=== PATIENT | female | born 1950 | race Caucasian/White ===

== ENCOUNTER → 2019-05-14 | Outpatient (CLI) | payer OTHER ==
[~2019-05-14] VITALS: Ht 162.6 cm; Wt 65.8 kg
[~2019-05-14] MED LIST: CHILDREN'S ASPI81 M1 PO; CRESTOR5 MG PO; ESCITALOPRA5 MG/5 ML PO; INTERMEZZO3.5 MG PO; PRESERVISION A1 EACH PO; PROPRANOLOL 4040 M1 PO
[2019-05-14 09:19] VITALS: BP 138/86
--- NOTE | 2019-05-14 09:40 | NUR ---
Pain Clinic Assessment: 1. History of Osteoarthritis: History of Rheumatoid Arthritis: 2. Height: 5 ft. 4 in. 162.6 cm. Weight: 145.0 lb. oz. 65.772 kg. Patient's BMI: 24.9 3. Vital Signs: BP: 138/86 Pulse: 73 Resp: 16 Temp: 02 Sat: 100 ECG Mon: 4. Pain Intensity: 9 5. Fall Risk: Dizziness: Y Needs help standing or walking: Y Fallen in the last 3 months: N Fall risk comments: 6. Patient on Blood Thinner: None 7. History of Hypertension: N 8. Opioid Therapy greater than 6 weeks: N Opiate Contract Signed: 9. Risk Assessment Tool Provided: 4-MODERATE RISKS 10. Functional Assessment Tool: 45/ 11. Recreational Drug Use: Never Drug Type: Tobacco Use: Never Smoker Tobacco Type: Amount or Packs/day: How Many Years: Alcohol Use: Yes Frequency: Special Occasions Quant: VARIES
--- NOTE | 2019-06-03 13:51 | HPC ---
[facility] [address] [address] PAIN MANAGEMENT CONSULTATION Name: AMANDA SOMERS Room #: REG [facility].#: [id number] Admission: 05/14/19 Attend Phys: Ajay Conway MD Discharge: Date of : 50 Report #: [id number] THIS REPORT FOR: cc: Yue Ng MD,Yue Conway,Ajay Richard MD ~ CC: Yue Conway DATE OF SERVICE: 05/14/2019 CHIEF COMPLAINT: Low back pain, which has gotten worse over the last 2 years. HISTORY: The patient is a 69-year-old female who has been referred to the pain clinic for evaluation of pain in the low back area. States that her pain has been problematic since 2018. She described as constant. It prevents her from engaging in activities of daily living. She notes that heat can sometimes be helpful. It impacts her ability to bend, getting in and out of the car, shop as well as impedes cleaning activities. She feels somewhat debilitated because of the pain. She has not had back surgery. She describes it as continuous, steady, constant, burning and aching. She rates it as a 9/10. She denies any new bowel or bladder dysfunction. She denies trauma to her back. She has tried muscle relaxants. She has tried oral steroids. Has had physical therapy. This helped her neck, but still has lower back pain and discomfort. ALLERGIES: SENSITIVITY TO OPIOID ANALGESICS. CURRENT MEDICATIONS: Zolpidem 3.5 mg, escitalopram 10 mg daily, multivitamins, calcium, Crestor 5 mg, aspirin 81 mg, propranolol 40 mg b.i.d. PAST MEDICAL HISTORY: Acid reflux, hyperlipidemia, eye exam in 2012, TIA with resolution about 7 years ago. PAST SURGICAL HISTORY: 1. Laparoscopic sigmoid resection ? diverticulitis, 2012. 2. Cholecystectomy, 10/2012. 3. Scope of vocal cords, 12/2012. 4. Esophagogram, 12/2012. 5. Right knee scope, 2007. 6. Right knee replacement, 2016. 7. Colonoscopy. 8. Tubular adenoma, 06/09/2017. SOCIAL HISTORY: She is a learning disabled teacher, retired, [place] [address] PAIN MANAGEMENT CONSULTATION Name: AMANDA SOMERS Room #: REG [facility]#: [id number] Admission: 05/14/19 Attend Phys: Ajay Conway MD Discharge: Date of : 50 Report #: [id number] REVIEW OF SYSTEMS: Fatigue, weakness. LABORATORY DATA: No new laboratory values are available at the time of our interview. PAIN CLINIC ASSESSMENT AND PQRS: 1. The patient is not being treated for osteoarthritis or rheumatoid arthritis. 2. Height 5 feet 4 inches, weight 145 pounds, BMI is 24.9. 3. Vital signs: Blood pressure 138/86, pulse 73, respiratory rate 16, room air saturation is 100%. 4. Pain intensity, 9/10. 5. Fall history. The patient has not fallen in the last 3 months. 6. Blood thinner. The patient is not on a blood thinning medication. 7. Hypertension. The patient is not being treated for hypertension. 8. Opioids greater than 6 weeks. The patient is not on an opioid regimen. 9. Risk assessment tool, low for opioid use. 10. Functional assessment tool, 45/70. 11. Recreational drug use. The patient denies use of recreational drugs. 12. Tobacco. The patient denies use of tobacco. 13. Alcohol. The patient drinks on special occasions. PHYSICAL EXAMINATION: GENERAL: The patient is a well-developed, well-nourished, white female. Appears her stated age. She is alert and oriented x 3. Her affect is appropriate. Speech is fluent. HEENT: Normocephalic, atraumatic. Extraocular eye muscles intact. Sclerae nonicteric. Mucous membranes are moist. NECK: Without adenopathy or JVD. HEART: Regular rate. LUNGS: Clear. ABDOMEN: Nontender. MUSCULOSKELETAL: The patient has some pain and discomfort in the lower portion of her back with pain that is radiating down into the L5-S1 dermatomal distribution with bilateral L4-L5 involvement. The patient has some pain across the lower portion of her back in the left and right paraspinous areas. IMPRESSION: 1. Lumbar radiculopathy, L4-L5 area with positive straight leg raise. 2. Acid reflux. 3. Hyperlipidemia. 4. Eye exam in 2012. 5. Transient ischemic attack with resolution about 7 years ago. RECOMMENDATIONS: We discussed treatment options with the patient. At this juncture, we will consider an epidural steroid injection. A model was used to indicate the area of probable pathology. We reviewed the reason for lumbar [facility] [address] [place] [address] PAIN MANAGEMENT CONSULTATION Name: AMANDA SOMERS Room #: [facility] Nelson#: [id number] Admission: 05/14/19 Attend Phys: Ajay Conway MD Discharge: Date of : 50 Report #: [id number] radicular pain and the possible etiologies. The patient will elect to return in the near future. She is unable to undergo an injection today because of previous appointments. She will return to the pain clinic, at which time she will then undergo an epidural steroid injection. Questions were sought and answered with her. She is accompanied by her significant other. We would like to thank you for letting us participate in her care. We hope she continues to improve. <ELECTRONICALLY SIGNED> By: Ajay Conway MD 06/03/19 [id number] [id number] Ajay Conway MD /[facility]
== END ==
LOC: PAIN 06:41
DX: M54.16 Radiculopathy, lumbar region (principal); K21.9 Gastro-esophageal reflux disease without esophagitis; E78.5 Hyperlipidemia, unspecified; Z86.73 Personal history of transient ischemic attack (TIA), and cerebral infarction without residual deficits; Z79.899 Other long term (current) drug therapy; Z79.82 Long term (current) use of aspirin; Z88.8 Allergy status to other drugs, medicaments and biological substances

== ENCOUNTER → 2019-05-19 | Outpatient (CLI) | payer OTHER ==
[~2019-05-19] VITALS: Ht 162.6 cm; Wt 68.1 kg
[2019-05-19 10:08] VITALS: BP 129/70
--- NOTE | 2019-05-19 10:20 | NUR ---
Pain Clinic Assessment: 1. History of Osteoarthritis: DENIES History of Rheumatoid Arthritis: DENIES 2. Height: 5 ft. 4 in. 162.6 cm. Weight: 150.2 lb. oz. 68.130 kg. Patient's BMI: 25.8 3. Vital Signs: BP: 129/70 Pulse: 64 Resp: 16 Temp: 02 Sat: 99 ECG Mon: 4. Pain Intensity: 5 5. Fall Risk: Dizziness: Y Needs help standing or walking: N Fallen in the last 3 months: N Fall risk comments: 6. Patient on Blood Thinner: None 7. History of Hypertension: N 8. Opioid Therapy greater than 6 weeks: N Opiate Contract Signed: 9. Risk Assessment Tool Provided: 4-MODERATE RISKS 10. Functional Assessment Tool: 11. Recreational Drug Use: Never Drug Type: Tobacco Use: Former Smoker Tobacco Type: Amount or Packs/day: How Many Years: Alcohol Use: Yes Frequency: Weekly Quant:
== END | disposition home or self-care (01) ==
LOC: PAIN 06:43
DX: M54.16 Radiculopathy, lumbar region (principal); G89.29 Other chronic pain; Z98.890 Other specified postprocedural states; Z79.899 Other long term (current) drug therapy; Z87.891 Personal history of nicotine dependence; Z88.8 Allergy status to other drugs, medicaments and biological substances

== ENCOUNTER → 2019-11-10 | Outpatient (CLI) | payer OTHER ==
[~2019-11-10] VITALS: Ht 162.6 cm; Wt 66.8 kg
[~2019-11-10] MED LIST changes: +OMEPRAZOLE 20 M20 M1 PO
[2019-11-10 08:32] VITALS: BP 125/78
--- NOTE | 2019-11-10 08:41 | NUR ---
Pain Clinic Assessment: 1. History of Osteoarthritis: DENIES History of Rheumatoid Arthritis: DENIES 2. Height: 5 ft. 4 in. 162.6 cm. Weight: 147.2 lb. oz. 66.769 kg. Patient's BMI: 25.3 3. Vital Signs: BP: 125/78 Pulse: 71 Resp: 18 Temp: 02 Sat: 98 ECG Mon: 4. Pain Intensity: 6 5. Fall Risk: Dizziness: N Needs help standing or walking: N Fallen in the last 3 months: N Fall risk comments: 6. Patient on Blood Thinner: None 7. History of Hypertension: N 8. Opioid Therapy greater than 6 weeks: N Opiate Contract Signed: 9. Risk Assessment Tool Provided: 4-MODERATE RISKS 10. Functional Assessment Tool: 45 11. Recreational Drug Use: Never Drug Type: Tobacco Use: Former Smoker Tobacco Type: Amount or Packs/day: How Many Years: Alcohol Use: Yes Frequency: Quant:
--- NOTE | 2019-11-25 01:07 | HPC ---
[facility] [place] [address] PAIN MANAGEMENT CONSULTATION Name: AMANDA SOMERS Room #: REG [facility]#: [id number] Admission: 11/10/19 Attend Phys: Ajay Conway MD Discharge: Date of : 50 Report #: [id number] THIS REPORT FOR: cc: Blake Bro MD, John R. MD Brown,Ajay Richard MD ~ CC: Blake Conway DATE OF SERVICE: 11/10/2019 CHIEF COMPLAINT: Low back pain has returned. HISTORY: The patient is a 69-year-old female who has been seen in the pain clinic because of lumbar radicular pain. Epidural steroid injections in the past were beneficial. She has noted an increase in her pain and rates it as a 6/10. The pain returned about a week ago. It is shooting in nature. She feels that her leg is giving out. She is now using a walker to ambulate. She also has pain in her right shoulder. She states that it feels like it is bruised. She has not fallen. It also feels like she has been punched in the shoulder. The pain in the lower extremity is most problematic. She would like to have this attended too today. ALLERGIES: SENSITIVITY TO OPIOID ANALGESICS. MEDICATIONS: Omeprazole 20 mg, Zolpidem 3.5 mg sublingual, Escitalopram 10 mg daily, vitamins containing zinc, copper b.i.d., Crestor 5 mg, Children's aspirin 81 mg, propranolol 40 mg. PAIN CLINIC ASSESSMENT AND PQRS: 1. The patient denies any history of osteoarthritis. She does have a history of rheumatoid arthritis. 2. Height 5 feet 4 inches, weight 147 pounds, BMI is 25. 3. Vital Signs: Blood pressure 125/78, pulse 71, respiratory rate 18, room air saturation is 98%, and pain intensity 6/10. 4. Fall history: The patient has not fallen in the last 3 months. 5. Blood thinner. The patient is not on a blood thinning medication. 6. Hypertension. The patient is not being treated for hypertension. 7. Opioids greater than 6 weeks. The patient receives medication from one source, pain clinic. 8. Risk assessment tool, moderate for opioid use. 9. Functional assessment tool /. 10. Recreational drug use. The patient denies. 11. Tobacco: The patient is a former smoker. 12. Alcohol. The patient occasionally drinks alcoholic beverages. [facility] [address] [place] [address] PAIN MANAGEMENT CONSULTATION Name: AMANDA SOMERS [id number] Admission: 11/10/19 Attend Phys: Ajay Conway MD Discharge: Date of : 50 Report #: [id number] PHYSICAL EXAMINATION: GENERAL: The patient is a well-developed, well-nourished white female. Appears her stated age. She is alert and oriented x 3. Her affect is appropriate. Speech is fluent. HEENT: Normocephalic, atraumatic. Extraocular eye muscles intact. Sclerae nonicteric. Mucous membranes are moist. NECK: Without adenopathy or JVD. HEART: Regular rate. LUNGS: Clear. ABDOMEN: Nontender. EXTREMITIES: Upper extremity muscle strength judged to be 5-/5 in the upper extremity and the patient complains of some increased pain and discomfort involving the right arm. The patient has pain and discomfort in the L4-L5 dermatomal distribution as well as in the L5-S1 dermatomal distribution. It is more problematic in the L4-L5 today. We will proceed with an epidural steroid in this area. IMPRESSION: 1. Lumbar radiculopathy, L4-L5 with positive straight leg raise. 2. Acid reflux. 3. Hyperlipidemia. 4. Transient ischemic attack with resolution and which resolved without sequela, this was about 7 years ago. 5. Arm pain on the right side with pain that radiates down into the arm, which is more persistent. RECOMMENDATIONS: We discussed treatment options with the patient. Risks and benefits of an epidural steroid injection were discussed. Possible complications of the procedure, which could include, but are not limited to infection, worsening pain, no improvement in pain, nerve damage, bleeding, spinal headache. We again discussed the problems with COVID-19. It is pandemic. Steroids are known to decrease one's immunologic response. Should the patient become infected, she may have a more difficult time. She elects to proceed. PROCEDURE NOTE: The patient was taken to the procedure area. She was then assisted in getting on the examination table. Her back was sterilely prepped with a Betadine solution at the L4-L5 area. A 0.25% bupivacaine using a 25-gauge needle was used to anesthetize the area. Fluoroscopy using anterior, posterior as well as lateral viewing were implemented. A 17-gauge Tuohy with loss of resistance technique was used to gain access to the epidural space. There was no CSF, heme or paresthesia. A total of 80 mg Depo-Medrol, 40 mg triamcinolone and 2 mL of 0.25% bupivacaine was injected. The patient tolerated the procedure well. There were no complications. A total of 15 seconds fluoroscopy time was used. The patient will follow up in the future as needed. She may elect to have some procedure on the right upper extremity should it [address] [address] PAIN MANAGEMENT CONSULTATION Name: AMANDA SOMERS [facility] [id number] Admission: 11/10/19 Attend Phys: Ajay Conway MD Discharge: Date of : 50 Report #: [id number] continue to be problematic. It does appear to be pain radiating from nerve root irritation. <ELECTRONICALLY SIGNED> By: Ajay Conway MD 11/25/19 0107 [id number] Ajay Conway MD /PMT
== END | disposition home or self-care (01) ==
LOC: PAIN 06:48
PROVIDERS: ATTEND Anesthesiology Pain Medicine
DX: M54.16 Radiculopathy, lumbar region (principal); G89.29 Other chronic pain; E78.5 Hyperlipidemia, unspecified; K21.9 Gastro-esophageal reflux disease without esophagitis; Z98.890 Other specified postprocedural states; Z79.899 Other long term (current) drug therapy; Z87.891 Personal history of nicotine dependence; Z86.73 Personal history of transient ischemic attack (TIA), and cerebral infarction without residual deficits; Z88.8 Allergy status to other drugs, medicaments and biological substances